=== PATIENT | male | born 1970 | race Caucasian/White ===

== ENCOUNTER 2019-12-15 07:25 | Day surgery (SDC) | payer BC ==
[~2019-12-15] VITALS: Ht 182.9 cm; Wt 116.0 kg
[~2019-12-15 07:25] MED LIST: COZAAR25 MG PO; METFORMIN HCL850 MG PO; MULTI-VITAMIN1 EACH PO; NEURONTIN300 MG PO; STEGLATRO15 MG PO; TRAZODONE HCL150 MG PO; VITAMIN B122500 MCG PO
--- NOTE | 2019-12-15 09:03 | NUR ---
12/15/19 0903 Nemo Monae 08- PT TO PACU IN LL POSITION. EYES CLOSED. RESPONDS TO VERBAL AND TACTILE STIMULI. BREATHING EASY AND UNLABORED. SPO2 >95% ON 1L O2 VIA NC. PT DENIES PAIN. PT ENCOURAGED TO PASS GAS AND UPDATED ON POC. 0857- PT AWAKENS EASILY WITH VERBAL STIMULI. DENIES PAIN NAUSEA OR DIZZINES. PT ENCOURAGED TO PASS GAS. VSS. BREATHING EASY AND UNLABORED. SOP2 >90% ON 1 L O2 VIA NC. O2 TITRATED DOWN TO ROOM AIR.
--- NOTE | 2019-12-15 13:17 | NUR ---
PT'S IN RM WAITING. SHE IS PLEASANT, HAS FEW QUESTIONS. SHE REQUESTED PRAYER FOR HER,PT AND THEIR FAMILY THAT IS GOING THROUGH A DIFFICULT TIME.
--- NOTE | 2019-12-16 06:21 | OR ---
[facility] [address] [place], [place] [address] Signed DATE OF OPERATION: 12/15/2019 SURGEON: Pallavi Hi MD PREOPERATIVE DIAGNOSIS: Screening. POSTOPERATIVE DIAGNOSIS: Poor bowel prep. PROCEDURE: Colonoscopy without biopsy. ESTIMATED BLOOD LOSS: None. INDICATIONS: Torey is a 49-year-old diabetic gentleman, asked to see me for his initial screening colonoscopy. I know Torey from before since I took care of his . He told me in the office he has no lower GI complaints. He said he has been on a keto diet and it has made him constipated. In that regard, we advised him to take an additional 32 ounces of the Gatorade with half a bottle of MiraLAX if he still had brown liquid stool coming from his prep. In the office I had given him a pamphlet on colonoscopy and we reviewed that together along with the risks including, but not limited to gas bloating, crampy abdominal pain, bleeding, perforation requiring surgery, and missed diagnosis. In addition, he told me there is no family history of colon cancer or polyps. We did review the need for IV conscious sedation. He had expressed understanding and wished to proceed. DESCRIPTION OF PROCEDURE: Torey was taken into our endoscopy suite and placed in the left lateral decubitus position. He was given IV sedation with 9 mg of Versed and 150 mcg of fentanyl. A digital rectal exam was performed and this was unremarkable. The adult colonoscope was introduced and advanced under direct visualization of camera all the way into the cecum itself. It took some additional sedation and abdominal compression in order to advance the scope. Unfortunately, he started with thick particulate liquid stool matter in the rectum and it remained that way throughout his entire colon all the way to the cecum. The cecum was covered in thick particulate stool matter. We could see and could palpate the cecum. The scope was slowly withdrawn. We tried to irrigate and suction out multiple areas and there was too much particulate stool matter to be Electronically Signed By: PALLAVI HI MD 12/16/19 0621 PATIENT NAME: TOREY MANCILLA OPERATIVE REPORT DATE OF : 66 REPORT #: [id number] PHYSICIAN: PALLAVI HI MD PCP: RADHA SO MD REPORT IS CONFIDENTIAL AND NOT TO BE RELEASED WITHOUT AUTHORIZATION [facility] [address] [place] [id number] Signed affective. Otherwise, we saw no evidence of any polyps, tumors, or diverticulosis. We had retroflexed the scope in the rectum and we saw no additional pathology above the anal canal. After this, the gas had been suctioned out and the gastroscope removed. Torey tolerated the procedure quite well. RECOMMENDATIONS: Torey needs to reschedule his colonoscopy in the weeks to months ahead with a double bowel prep. MD AYE Vega/DARIANL /[id number] cc: MD Pallavi Ross MD Copies: RADHA SO DMD, ANDREW L MD ~ Electronically Signed By: PALLAVI HI MD 12/16/19 0621 PATIENT NAME: TOREY MANCILLA Yasmany OPERATIVE REPORT DATE OF : 66 REPORT #: [id number] PHYSICIAN: PALLAVI HI MD PCP: RADHA SO MD REPORT IS CONFIDENTIAL AND NOT TO BE RELEASED WITHOUT AUTHORIZATION
== END 2019-12-15 09:30 | disposition home or self-care (01) ==
LOC: DS 07:25 → OPS 07:25 → DS 08:15 → OPS 09:30
PROVIDERS: ATTEND Colon & Rectal Surgery
PROC: 0DJD8ZZ Inspection of Lower Intestinal Tract, Via Natural or Artificial Opening Endoscopic (ICD-10-PCS; principal; 2019-12-15 08:15)
DX: Z12.11 Encounter for screening for malignant neoplasm of colon (principal); I10 Essential (primary) hypertension; E11.9 Type 2 diabetes mellitus without complications; G43.909 Migraine, unspecified, not intractable, without status migrainosus; G47.33 Obstructive sleep apnea (adult) (pediatric); Z79.899 Other long term (current) drug therapy; Z79.84 Long term (current) use of oral hypoglycemic drugs; Z88.8 Allergy status to other drugs, medicaments and biological substances
CPT/HCPCS: 99153; G0500; J2250; J3010; J7121

== ENCOUNTER 2021-10-12 19:11 | Emergency (ER) | payer BC ==
[~2021-10-12] VITALS: Ht 182.9 cm; Wt 115.0 kg
--- NOTE | 2021-10-13 15:30 | EKG ---
[facility] [address] [facility] [place], [place] [address] Signed Sinus tachycardia Otherwise normal ECG No previous ECGs available Confirmed by NICOLE GARCIA MD ([id number]) on 10/13/2021 3:29:52 PM Electronically Signed By: NICOLE GARCIA MD 10/13/21 1530 PATIENT NAME: TOREY MANCILLA GLADYS Electrocardiogram DATE OF : 66 PHYSICIAN: NICOLE GARCIA MD REPORT #: [id number] REPORT IS CONFIDENTIAL AND NOT TO BE RELEASED WITHOUT AUTHORIZATION
== END 2021-10-12 22:39 | disposition home or self-care (01) ==
LOC: ED 19:11
DX: R42 Dizziness and giddiness (principal); R53.83 Other fatigue; R00.0 Tachycardia, unspecified; R11.0 Nausea; E11.9 Type 2 diabetes mellitus without complications; M10.9 Gout, unspecified; E66.9 Obesity, unspecified; Z20.822 Contact with and (suspected) exposure to COVID-19; Z79.899 Other long term (current) drug therapy; Z79.84 Long term (current) use of oral hypoglycemic drugs; Z88.8 Allergy status to other drugs, medicaments and biological substances
CPT/HCPCS: 36415; 71045; 80053; 81001; 83735; 84484; 85025; 85379; 87502; 93005; 93010; 99284-25; A9270; U0003